=== PATIENT | male | born 1985 | race Caucasian/White ===

== ENCOUNTER 2018-09-16 11:53 | Emergency (ER) | payer OTHER ==
[~2018-09-16] VITALS: Ht 170.2 cm; Wt 56.7 kg
[2018-09-16 12:24] LABS: ABSOLUTE BASOPHILS 0.1 thou/uL (0.0-0.2); ABSOLUTE EOSINOPHILS 0.1 thou/uL (0.0-0.7); ABSOLUTE LYMPHOCYTES 2.3 thou/uL (0.8-5.3); ABSOLUTE MONOCYTES 0.7 thou/uL (0.0-1.2); ABSOLUTE NEUTROPHILS 4.7 thou/uL (1.6-8.1); BASOPHILS 0.9 %; EOSINOPHILS 1.8 %; HEMATOCRIT 46.6 % (42.0-52.0); HEMOGLOBIN 15.8 gm/dL (14.0-18.0); LYMPHOCYTES 28.8 %; MCH 29.6 pg (26.0-34.0); MCHC 33.9 g/dL (28.0-37.0); MCV 87.4 fL (80.0-100.0); MONOCYTES 8.4 %; MPV 8.1 fl. (7.2-11.1); NUCLEATED RBCS 0 /100WBC; PLATELET COUNT* 294 thou/uL (150-400); POLYS 60.1 %; RBC 5.34 mil/uL (4.50-6.00); RDW-CV 13.7 % (10.5-14.5); WBC 7.9 thou/uL (4.0-11.0)
[2018-09-16 12:41] LABS: ALBUMIN 4.1 g/dL (3.4-5.0); CALCIUM 9.2 mg/dL (8.5-10.1); CREATININE 1.1 mg/dL (0.6-1.3); POTASSIUM 4.1 mmol/L (3.5-5.1); TOTAL BILIRUBIN 1.5 mg/dL (<0.1-1.0); TOTAL PROTEIN 7.4 g/dL (6.4-8.2)
[2018-09-16] MEDS ORDERED: COLACE100 MG PO (13:33)
[2018-09-16 13:43] VITALS: BP 99/56
== END 2018-09-16 13:46 ==
LOC: M.ERS 11:53
PROVIDERS: Nurse Practitioner Family
DX: K59.00 Constipation, unspecified (principal); R94.5 Abnormal results of liver function studies